=== PATIENT | female | born 1965 | race Caucasian/White ===

== ENCOUNTER 2019-05-07 14:00 | Emergency (ER) | payer MEDICAID ==
[2019-05-07] MEDS ORDERED: ORPHENADRINE CITRATE 60MG/2ML VIAL IM ONE (14:19)
[2019-05-07] MEDS ORDERED: KETOROLAC 30 MG/ML VIAL IM ONE (14:19)
--- NOTE | 2019-05-07 14:25 | Emergency Department Record ---
History of Present Illness - General Chief Complaint: Back Pain/Injury Stated Complaint: BACK PAIN Time Seen by Provider: 05/07/19 14:09 Source: Patient Mode of Arrival: Ambulatory Limitations: No limitations - History of Present Illness Initial Comments: The patient is here due to back pain for 6 hours. The patient was lifting up her L leg this AM and felt a "POP" and pain in the R lower back. The pain intermittently is radiating down the buttocks into the R posterior thigh. There is no leg weakness, numbness or any bowel or bladder issues. The patient is able to ambulate with pain. She states she has no hx of similar issues and the pain is much worse with any movement, bending or walking. Onset/Timin -: Hour(s) Severity: Moderate Severity scale (1-10): 8 Quality: Aching, Burning Consistency: Constant, Intermittent Context: Bending, Turning/twisting Treatments Prior to Arrival: Prescription analgesics Treatment Prior to Arrival Comment:: percocet - Related Data Previous Rx's Medication Instructions Recorded Cyclobenzaprine HCl [Flexeril] 10 mg PO TID PRN #20 tablet 05/07/19 Methylprednisolone [Medrol Dose 4 mg PO DAILY #1 tab.ds.pk 05/07/19 Pack] Naproxen [Naprosyn] 500 mg PO BID #14 tablet.dr 05/07/19 Allergies Allergy/AdvReac Type Severity Reaction Status Date / Time No Known Drug Allergies Allergy Verified 05/07/19 14:09 Travel Screening - Travel/Exposure Within Last 30 Days Have you traveled within the last 30 days?: No - Travel/Exposure Within Last Year Have you traveled outside the [place] in the last year?: No - Additonal Travel Details Have you been exposed to anyone with a communicable illness?: No - Travel Symptoms Symptom Screening: None Review of Systems Constitutional: Denies: Chills, Fever Eyes: Denies: Eye discharge ENT: Denies: Congestion Respiratory: Denies: Cough, Dyspnea Past Medical History - SOCIAL HISTORY Smoking Status: Never smoker Alcohol Use: None Drug Use: None - RESPIRATORY Hx Respiratory Disorders: Yes Comment:: seasonal allergies - CARDIOVASCULAR Hx Cardio Disorders: No - NEURO Hx Neuro Disorders: No - GI Hx GI Disorders: Yes Hx Reflux: Yes - Hx Genitourinary Disorders: No - ENDOCRINE Hx Endocrine Disorders: No - MUSCULOSKELETAL Hx Musculoskeletal Disorders: Yes Hx Arthritis: Yes - PSYCH Hx Psych Problems: Yes Hx Depression: Yes - HEMATOLOGY/ONCOLOGY Hx Hematology/Oncology Disorders: No Family Medical History Any Significant Family History?: Yes Physical Exam - General General Appearance: Alert, Oriented x3, Cooperative, No acute distress - Head Head exam: Atraumatic - Eye Eye exam: Normal appearance - Neck Neck exam: Normal inspection, Full ROM. negative: Tenderness - Respiratory Respiratory exam: Normal lung sounds bilaterally. negative: Respiratory distress - Cardiovascular Cardiovascular Exam: Regular rate, Normal rhythm, Normal heart sounds - GI/Abdominal GI/Abdominal exam: Soft, Normal bowel sounds. negative: Tenderness - Extremities Extremities exam: Normal inspection, Full ROM, Normal capillary refill. negative: Tenderness - Back Back exam: Reports: Normal inspection, Paraspinal tenderness, Other (There is mild tenderness over the R L4-5 paraspinal area and R SI joint. ). Denies: Vertebral tenderness - Neurological Neurological exam: Alert, Normal gait, Oriented X3, Reflexes normal, Other (Neg SLR bilaterally.). negative: Abnormal gait, Altered, Motor sensory deficit Course Vital Signs 05/07/19 14:03 Temperature 97.6 F Pulse Rate 79 Respiratory 16 Rate Blood Pressure 123/83 Pulse Ox 98 - Reevaluation(s) Reevaluation #1: The patient is doing a lot better at this time and only has mild pain. There is no radiation of the pain down the leg and no leg numbness or weakness. She is up walking with no difficulty or weakness. I did discuss the need to F/U with her PCP next week for recheck and to return to the ER for any worsening pain, leg weakness or numbness or any bowel or bladder issues. 05/07/19 14:58 Medical Decision Making - Data Complexity MDM Data: X-Ray Ordered and/or Reviewed - Radiology Data Radiology results: Report reviewed (LS Spine: neg for acute changes.) Disposition Disposition: Discharge Clinical Impression: Strain of lumbar spine Qualifiers: Encounter type: initial encounter Qualified Code(s): S39.012A - Strain of muscle, fascia and tendon of lower back, initial encounter Disposition: Home, Self-Care Condition: (2) Stable Instructions: Low Back Strain (ED) Additional Instructions: Please rest with no lifting and take the pain medicines and Medrol Dose pack as directed. Please see your family doctor in 1-2 weeks for recheck and return to the ER for any worsening pain, leg weakness, numbness or any bowel or bladder incontinence or retention. Prescriptions: Cyclobenzaprine HCl [Flexeril] 10 mg PO TID PRN #20 tablet PRN Reason: Pain Methylprednisolone [Medrol Dose Pack] 4 mg PO DAILY #1 tab.ds.pk Naproxen [Naprosyn] 500 mg PO BID #14 tablet.dr Forms: Patient Portal Access Time of Disposition: 14:57 Quality - Quality Measures Quality Measures: N/A - Blood Pressure Screening View Details: Yes Does Patient Have Any of the Following: No Blood Pressure Classification: Pre-Hypertensive BP Reading Systolic Measurement: 123 Diastolic Measurement: 83 Screening for High Blood Pressure: < Pre-Hypertensive BP, F/U Documented > [G8950] Pre-Hypertensive Follow-up Interventions: Referral to alternative/primary care provider.
--- NOTE | 2019-05-07 14:42 | RADIOLOGY REPORT ---
EXAMINATION: Lumbar Spine Two or Three Views EXAM DATE: 05/07/2019 2:37 PM TECHNIQUE: AP and lateral views INDICATION: R lower back pain COMPARISON: None ENCOUNTER: Initial FINDINGS: No evidence of fracture. Mild levoconvex scoliosis in the lumbar spine. There is vertebral body spurr ing. Mild degenerative disc disease at L3-L4. Slight anterolisthesis of L5 on S1. Atherosclerotic milagros cification in the aorta. IMPRESSION: Degenerative changes. Dictated by: Jose Willoughby MD on 05/07/2019 2:37 PM. .
== END 2019-05-07 15:03 | disposition home or self-care (01) ==
LOC: ER 14:00
DX: S39.012A Strain of muscle, fascia and tendon of lower back, initial encounter (principal); X50.0XXA Overexertion from strenuous movement or load, initial encounter; Y93.E1 Activity, personal bathing and showering
CPT/HCPCS: 99284 ×2; 96372; 72100; J1885; J2360

== ENCOUNTER 2019-05-21 12:10 | Emergency (ER) | payer MEDICAID ==
--- NOTE | 2019-05-21 12:27 | Emergency Department Record ---
History of Present Illness - General Chief complaint: Extremity Problem Stated complaint: INFECTION IN R THUMB KNUCKLE Time Seen by Provider: 05/21/19 12:19 Source: Patient Mode of Arrival: Ambulatory Limitations: No limitations - History of Present Illness Initial comments: The patient is here due to R hand pain for 2 days at the base of the thumb. She has a hx of a R 1st Carpal-MC prosthetic joint 10 years ago at [facility] and for the last 2 days the area has been painful and slightly red and tender. There is no fever, chills, trauma or injury. MD Complaint: Extremity pain Onset/Timin -: Days(s) Location: Right, Hand Radiation: Proximal Severity scale (1-10): 8 Quality: Aching Consistency: Constant, Intermittent Associated Symptoms: Denies other symptoms - Related Data Previous Rx's Medication Instructions Recorded Colchicine 0.6 mg PO DAILY #3 capsule 05/21/19 Indomethacin [Indocin] 25 mg PO TID #21 capsule 05/21/19 Allergies Allergy/AdvReac Type Severity Reaction Status Date / Time No Known Drug Allergies Allergy Verified 05/21/19 12:16 Travel Screening - Travel/Exposure Within Last 30 Days Have you traveled within the last 30 days?: No - Travel/Exposure Within Last Year Have you traveled outside the [place] in the last year?: No - Additonal Travel Details Have you been exposed to anyone with a communicable illness?: No - Travel Symptoms Symptom Screening: None Review of Systems Constitutional: Denies: Chills, Fever Past Medical History - SOCIAL HISTORY Smoking Status: Never smoker Alcohol Use: None Drug Use: None - RESPIRATORY Hx Respiratory Disorders: Yes Comment:: seasonal allergies - CARDIOVASCULAR Hx Cardio Disorders: No - NEURO Hx Neuro Disorders: No - GI Hx GI Disorders: Yes Hx Reflux: Yes - Hx Genitourinary Disorders: No - ENDOCRINE Hx Endocrine Disorders: No - MUSCULOSKELETAL Hx Musculoskeletal Disorders: Yes Hx Arthritis: Yes - PSYCH Hx Psych Problems: Yes Hx Depression: Yes - HEMATOLOGY/ONCOLOGY Hx Hematology/Oncology Disorders: No Family Medical History Any Significant Family History?: Yes Physical Exam - General General Appearance: Alert, Cooperative, No acute distress - Head Head exam: Atraumatic, Normocephalic - Extremities Extremities exam: Full ROM (There is normal ROM of the R thumb but with mild pain at the prosthetic joint.), Joint swelling (There is very mild swelling at the prosthetic R hand joint.), Normal capillary refill, Tenderness, Other (The R hand is NVI.). negative: Normal inspection (There is very mild erythema and swelling dorsally over the R hand prosthetic joint at the 1st Carpal-MC area.) - Neurological Neurological exam: Alert. negative: Motor sensory deficit Course Vital Signs 05/21/19 12:12 Temperature 97.7 F Pulse Rate 73 Respiratory 20 Rate Blood Pressure 140/77 Pulse Ox 98 - Reevaluation(s) Reevaluation #1: I did discuss the case with DR. Park (hand surgery) and he is willing to see the patient in 1-2 days. He believe the cause is most likely inflammatory and he would like the patient on Indocin and a short course of Colchicine and will see her in F/U. 05/21/19 13:03 Medical Decision Making - Data Complexity MDM Data: X-Ray Ordered and/or Reviewed - Radiology Data Radiology results: Report reviewed (R hand: Possible loosening of the prosthesis. ) Disposition Disposition: Discharge Clinical Impression: Hand pain, right Disposition: Home, Self-Care Condition: (2) Stable Instructions: Arthralgia (ED) Additional Instructions: Please use ice to the hand affected area and take the Indocin and Colchicine as directed. Please call Dr. Park for f/u tomorrow. Please wear your thumb spica splint this week. Prescriptions: Colchicine 0.6 mg PO DAILY #3 capsule Indomethacin [Indocin] 25 mg PO TID #21 capsule Referrals: MARLENE PARK M.D. [MEDICAL DOCTOR] - Forms: Patient Portal Access Time of Disposition: 13:06 Quality - Quality Measures Quality Measures: N/A - Blood Pressure Screening View Details: Yes Does Patient Have Any of the Following: No Blood Pressure Classification: Hypertensive Reading Systolic Measurement: 140 Diastolic Measurement: 77 Screening for High Blood Pressure: < First Hypertensive BP, F/U Documented > [G8950] First Hypertensive Follow-up Interventions: Referral to alternative/primary care provider.
--- NOTE | 2019-05-21 13:51 | RADIOLOGY REPORT ---
EXAMINATION: Right Hand, Minimum Three Views EXAM DATE: 05/21/2019 12:43 PM TECHNIQUE: PA, lateral, and oblique INDICATION: 4 views of the right wrist COMPARISON: None ENCOUNTER: Initial FINDINGS: A prosthesis is demonstrated the first digit carpal metacarpal joint. Lucency around the prosthesis i s suspicious for loosening. No fractures identified. Cystic change in the lunate appears degenerative , although potentially could also represent early Kienbock disease IMPRESSION: 1. Joint prosthesis at the first digit carpometacarpal joint. Loosening suspected. -No prior imaging available for comparison. An addendum made if imaging becomes available 2. Cystic change in the lunate appears degenerative, although potentially could also represent early Kienbock disease Dictated by: OMAR KOHLER MD on 05/21/2019 1:40 PM. .
== END 2019-05-21 13:40 | disposition home or self-care (01) ==
LOC: ER 12:10
DX: M79.641 Pain in right hand (principal); Z96.691 Finger-joint replacement of right hand
CPT/HCPCS: 99283

== ENCOUNTER 2019-07-10 17:19 | Emergency (ER) | payer MEDICAID ==
--- NOTE | 2019-07-10 17:50 | Emergency Department Record ---
History of Present Illness - General Chief Complaint: Abdominal Pain Stated Complaint: RIGHT SIDE ABD PAIN Time Seen by Provider: 07/10/19 17:43 Source: Patient Mode of Arrival: Ambulatory Limitations: No limitations - History of Present Illness Initial Comments: 53 yo female presents to ED for evaluation of "sharp" abdominal pain to the RLQ, denies nausea, vomiting, change in stools, fevers, chills, or urinary symptoms. Patient reports that her symptoms began 2 days ago, reports past surgical hisotry significant for sarah/uterine ablation. Patient denies history of symptoms previously. MD Complaint: Abdominal pain Onset/Timin -: Days(s) Location: RLQ Radiation: R flank Severity: Moderate Severity scale (1-10): 8 Quality: Sharp, Stabbing Consistency: Constant Improves With: Nothing Worsens With: Nothing Associated Symptoms: Constipation, Nausea - Related Data Patient : No Home Medications Medication Instructions Recorded Confirmed Last Taken Bupropion HCl [Wellbutrin Xl] 150 mg PO DAILY 07/10/19 07/10/19 Unknown Allergies Allergy/AdvReac Type Severity Reaction Status Date / Time No Known Drug Allergies Allergy Unverified 06/08/19 10:19 Travel Screening - Travel/Exposure Within Last 30 Days Have you traveled within the last 30 days?: No Review of Systems Constitutional: Denies: Chills, Fever, Malaise, Night sweats Eyes: Denies: Eye discharge, Eye pain ENT: Denies: Congestion, Ear pain, Epistaxis Respiratory: Denies: Cough, Dyspnea Cardiovascular: Denies: Chest pain, Dyspnea on exertion Endocrine: Denies: Fatigue, Heat or cold intolerance Gastrointestinal: Reports: Abdominal pain, Constipation. Denies: Nausea, Vomiting Genitourinary: Denies: Incontinence, Retention Musculoskeletal: Reports: Back pain. Denies: Arthralgia Skin: Denies: Bruising, Change in color Neurological: Denies: Abnormal gait, Confusion, Headache, Numbness, Tingling, Tremors Psychiatric: Denies: Anxiety Hematological/Lymphatic: Denies: Anemia, Blood Clots Past Medical History - SOCIAL HISTORY Smoking Status: Never smoker - RESPIRATORY Hx Respiratory Disorders: Yes Comment:: seasonal allergies - CARDIOVASCULAR Hx Cardio Disorders: No - NEURO Hx Neuro Disorders: No - GI Hx GI Disorders: Yes Hx Reflux: Yes - Hx Genitourinary Disorders: No - ENDOCRINE Hx Endocrine Disorders: No - MUSCULOSKELETAL Hx Musculoskeletal Disorders: Yes Hx Arthritis: Yes - PSYCH Hx Psych Problems: Yes Hx Depression: Yes - HEMATOLOGY/ONCOLOGY Hx Hematology/Oncology Disorders: No Family Medical History Any Significant Family History?: No Physical Exam - General General Appearance: Alert, Oriented x3, Cooperative, Mild distress Limitations: No limitations - Head Head exam: Atraumatic, Normocephalic, Normal inspection Head exam detail: negative: Abrasion, Contusion, Humphries's sign, General tenderness, Hematoma, Laceration - Eye Eye exam: Normal appearance. negative: Conjunctival injection, Periorbital swelling, Periorbital tenderness, Scleral icterus - ENT Ear exam: negative: Auricular hematoma, Auricular trauma Nasal Exam: negative: Active bleeding, Discharge, Dried blood, Foreign body Mouth exam: negative: Drooling, Laceration, Muffled voice, Tongue elevation - Neck Neck exam: Normal inspection. negative: Meningismus, Tenderness - Respiratory Respiratory exam: Normal lung sounds bilaterally. negative: Respiratory distress, Rhonchi, Stridor, Wheezes - Cardiovascular Cardiovascular Exam: Regular rate, Normal rhythm, Normal heart sounds - GI/Abdominal GI/Abdominal exam: Soft, Tenderness (Mild TTP RLQ, suprapubic region on examination, no rebound, guarding, or peritoneal signs.). negative: Distended, Rebound, Rigid - Rectal Rectal exam: Deferred - exam: Deferred - Extremities Extremities exam: Normal inspection. negative: Pedal edema, Tenderness - Back Back exam: Reports: CVA tenderness (R). Denies: CVA tenderness (L) - Neurological Neurological exam: Alert, Normal gait, Oriented X3 - Psychiatric Psychiatric exam: Normal affect, Normal mood - Skin Skin exam: Normal color. negative: Abrasion Type of lesion: negative: abrasion Course Vital Signs 07/10/19 17:31 Temperature 98.4 F Pulse Rate 72 Respiratory 16 Rate Blood Pressure 122/89 Pulse Ox 96 - Reevaluation(s) Reevaluation #1: 07/10/19 18:30 Laboratory studies were reviewed and appear grossly unremarkable for an acute process. Reevaluation #2: 07/10/19 20:20 CT Abdomen and Pelvis: Geographic mixed lesion posterior left acetabulum measuring 4.5x1.8 cm, short term follow-up is reccommended. 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 Patient verbalizes understanding of all instructions, appears stable for discharge with instructions for follow-up. Medical Decision Making - Lab Data Result diagrams: 07/10/19 18:00 07/10/19 18:00 Disposition Disposition: Discharge Clinical Impression: Right flank pain Disposition: Home, Self-Care Condition: (2) Stable Instructions: Flank Pain (ED) Additional Instructions: Return to ED if your symptoms worsen or if you have any concerns. Motrin 800 mg as directed. Follow-up with your family doctor in 3-5 days as directed. Follow-up with your PCP specifically for further evaluation of the lytic lesion in the left acetabulum. Forms: Patient Portal Access Time of Disposition: 20:22 Quality - Quality Measures Quality Measures: N/A - Blood Pressure Screening Does Patient Have Any of the Following: No Blood Pressure Classification: Pre-Hypertensive BP Reading Systolic Measurement: 122 Diastolic Measurement: 89 Screening for High Blood Pressure: < Pre-Hypertensive BP, F/U Documented > [G8950] Pre-Hypertensive Follow-up Interventions: Referral to alternative/primary care provider.
[2019-07-10] MEDS: KETOROLAC 30 MG/ML VIAL IVP ONE (17:59)
[2019-07-10] MEDS: 0.9 % SODIUM CHLORIDE 1000ML 1,000 ML IV SCH (18:00)
[2019-07-10 18:11] LABS: ABSOLUTE NEUTROPHIL COUNT 6.57; BASO % 0.3 % (0-6); EOS % 1.6 % (0-6); GRAN % 70.1 % (47-80); HEMATOCRIT 43.7 % (35.0-47.0); HEMOGLOBIN 13.5 gm/dl (11.6-16.0); LYMPH % 21.5 % (16-45); MEAN CELL VOLUME 82.8 fl (81-97); MEAN CORPUSCULAR HEMOGLOBIN 25.6 pg (27-33); MEAN CORPUSCULAR HGB CONC 30.9 g/dl (32-36); MEAN PLATELET VOLUME 9.4 fl (7.4-10.4); MONO % 6.5 % (0-9); PLATELET COUNT 386 K/uL (130-400); RED BLOOD COUNT 5.28 M/uL (3.80-5.40); RED CELL DISTRIBUTION WIDTH 15.6 % (11.5-14.5); WHITE BLOOD COUNT W/O DIFF 9.4 K/uL (4.2-12.2)
[2019-07-10 18:12] LABS: URINE APPEARANCE CLEAR; URINE BILIRUBIN NEGATIVE (NEGATIVE); URINE BLOOD NEGATIVE (NEGATIVE); URINE COLOR YELLOW; URINE GLUCOSE (UA) NEGATIVE (NEGATIVE); URINE KETONE NEGATIVE (NEGATIVE); URINE LEUKOCYTE ESTERASE NEGATIVE (NEGATIVE); URINE NITRITE NEGATIVE (NEGATIVE); URINE PROTEIN NEGATIVE (NEGATIVE); URINE UROBILINOGEN 0.2 E.U./dL (0.20 - 1.00)
[2019-07-10 18:25] LABS: BLOOD UREA NITROGEN 14 mg/dL (6-20); CREATININE 0.7 mg/dL (0.5-0.9); EST GLOMERULAR FILTRATION RATE > 60 mL/min
[2019-07-10 18:26] LABS: LIPASE 19 U/L (13-60); TOTAL PROTEIN 7.2 g/dL (6.6-8.7)
[2019-07-10 18:28] LABS: GLUCOSE,RANDOM 97 mg/dL (74-109)
[2019-07-10 18:31] LABS: ALB/GLOB RATIO 1.5 (1.1-1.8); ALBUMIN 4.3 g/dL (4.0-5.0); ALKALINE PHOSPHATASE 102 U/L (35-104); ALT/SGPT 17 U/L (<33); AST/SGOT 15 U/L (10.0-35.0)
--- NOTE | 2019-07-10 20:14 | CT SCAN REPORT ---
EXAMINATION: CT Abdomen and Pelvis with IV Contrast EXAM DATE: 07/10/2019 7:15 PM TECHNIQUE: CT imaging of the abdomen and pelvis was performed with intravenous contrast. Coronal and sagittal images were reconstructed. IV Contrast: The amount and type of contrast are recorded in the medical record. INDICATION: right sided abdominal/flank pain COMPARISON: None ENCOUNTER: Not applicable CT ABDOMEN AND PELVIS FINDINGS: Lung Bases: Included extent of the lung bases are clear. Hepatobiliary: The liver has a normal size with a smooth surface. The hepatic and portal veins appear patent. Gallbladder surgically absent. Pancreas: The pancreas is normal. Spleen: The spleen is not enlarged. Adrenals: The adrenal glands are normal. Kidneys, Ureters, & Bladder: Both kidneys have a normal size and there is no hydronephrosis. 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 Tiny punctate right nonobstructing nephrolithiasis. Vahe th ureters have a normal caliber and the urinary bladder is unremarkable. Gastrointestinal: Small hiatal hernia. Stomach is otherwise unremarkable. Small bowel is not obstruct ed. Appendix is best seen on coronal image 91 and appears unremarkable. Large bowel is within normal limits. Reproductive Organs: Uterus is present. Lymphatic System: There is no adenopathy within the abdomen or pelvis. Vasculature: Normal caliber abdominal aorta. Peritoneum: No free fluid, free air, or inflammation Abdominal Wall & Musculoskeletal: There is a geographic mixed lytic and groundglass nodule seen withi n the posterior left acetabulum measuring 4.5 x 1.8 cm without old studies for comparison. Short-term follow-up to demonstrate stability is recommended. IMPRESSION: There is a geographic mixed lytic and groundglass nodule seen within the posterior left acetabulum me asuring 4.5 x 1.8 cm without old studies for comparison. Short-term follow-up to demonstrate stabilit y is recommended. 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 Nonobstructed bowel with normal appendix. Small hiatal hernia Additional findings as detailed above Dictated by: Maximo Hernandez MD on 07/10/2019 7:53 PM. .
== END 2019-07-10 20:59 | disposition home or self-care (01) ==
LOC: ER 17:19
DX: R10.31 Right lower quadrant pain (principal); R11.0 Nausea
CPT/HCPCS: 99284 ×2; 96374; 96361; 83690; 85025; 80053; 81003; 74177; Q9967; J1885; J7030